=== PATIENT | male | born 1980 | race Caucasian/White ===

== ENCOUNTER → 2019-11-07 07:46 | Outpatient (CLI) | payer OTHER, SELFPAY ==
--- NOTE | 2019-11-07 07:51 | CT_ITS ---
STUDY: CT MAXILLOFACIAL SINUSES REASON FOR EXAM: Male, 39 years old. Sinusitis RADIATION DOSAGE (If Supplied By Facility): CTDIvol = ( 33.05 ) mGy, DLP = ( 833.85 ) mGycm TECHNIQUE: The patient was scanned in a multi detector CT scanner. High resolution axial imaging was performed without the administration of intravenous contrast material. Sagittal and coronal images were reconstructed. Individualized dose optimization techniques were used for this CT. COMPARISON: None. FINDINGS: FRONTAL SINUSES: Moderate mucosal thickening of the right frontal sinus ETHMOIDAL SINUSES: Mild mucosal thickening within the bilateral ethmoid sinuses slightly more pronounced on the right MAXILLARY SINUSES: There is large mucous retention cyst in left maxillary sinus without air-fluid level. There is severe diffuse opacification of the right maxillary sinus with a polypoid lesion extending into the nasal cavity which may represent an antrochoanal polyp or papilloma. Clinical correlation recommended SPHENOIDAL SINUSES: Mild mucosal thickening in the right sphenoid sinus There is obstruction of the bilateral maxillary infundibuli due to mucosal thickening. Normal uncinate processes, ethmoid bullae, and hiatus semilunaris. Normal bilateral middle turbinates. Normal bilateral inferior turbinates. There is minimal septal deviation towards the left. There is patency of the bilateral nasal airways. The visualized osseous structures are normal. The visualized bilateral orbital contents are normal. CT/Sinus/Facial Bone IMPRESSION: Diffuse pansinusitis greater on the right with most severe involvement of the maxillary sinuses. Cannot exclude right antrochoanal polyp or papilloma. Clinical correlation recommended. Electronically Signed: Esteban Abdi MD at 17:30 EST , Service support ,
== END ==
PROVIDERS: Family Provider Family Medicine; PCP Family Medicine; Referring Provider Otolaryngology Otolaryngology/Facial Plastic Surgery; Visit Provider Otolaryngology Otolaryngology/Facial Plastic Surgery
DX: J32.9 Chronic sinusitis, unspecified (principal)
CPT/HCPCS: 70486

== ENCOUNTER 2019-12-23 07:50 | Day surgery (SDC) | payer OTHER, SELFPAY ==
--- NOTE | 2019-12-17 17:02 | EKG12_ITS ---
Test Reason : PREOP Blood Pressure : / mmHG Vent. Rate : 077 BPM Atrial Rate : 077 BPM P-R Int : 164 ms QRS Dur : 110 ms QT Int : 376 ms P-R-T Axes : 041 -09 041 degrees QTc Int : 425 ms Normal sinus rhythm Normal ECG Confirmed by TREVOR ROSENBERG, BLACK ([id number]), features editor LUIZA HINDS ([id number]) on 12/18/2019 1:49:27 PM Referred By: Lizandro Sanchez Confirmed By:BLACK MURRAY MD
[2019-12-17 17:36] LABS: Hematocrit 45.2 % (40-54); Mean Corp Hgb Conc 33.2 g/dL (32-36); Mean Corpuscular Hgb 29.2 pg (27.0-32.0); Mean Corpuscular Volume 88.1 fL (80-94); Mean Platelet Vol. 9.1 fl (6.2-12.0); Platelet Count 290 K/mm3 (150-450); RBC Distribution Width CV 12.1 % (11.6-14.6); RBC Distribution Width SD 39.3 fl (35.1-43.9); Red Blood Count 5.13 M/mm3 (4.6-6.2); White Blood Count 6.2 K/mm3 (4.4-11.0)
[2019-12-17 18:17] LABS: Anion Gap 4 (5-15); BUN 17 mg/dL (7-18); BUN/Creat Ratio 17.8 RATIO (10-20); Calcium,Total 8.8 mg/dL (8.5-10.1); Chloride 104 mmol/L (98-107); Creatinine, Serum 0.95 mg/dL (0.70-1.30); EST Glomerular Filtration Rate 94 mL/min (>60); Est Glom Filt Rate - Afr Amer 114 mL/min (>60); Glucose 85 mg/dL (74-106); Potassium 3.6 mmol/L (3.5-5.1); Sodium Level 137 mmol/L (136-145)
[2019-12-23] VITALS (7 sets, daily range): BP systolic 136–160; BP diastolic 84–94; PULSE 67–80; RESP 16; TEMP 35.9–36.6; O2SAT 93–97; BMI 37.3
[2019-12-23] MEDS: Lactated Ringers 1,000 ML 100 ML IV (08:37)
--- NOTE | 2019-12-23 09:35 | ETH_PTH ---
PATIENT: SUDHIR CHAVEZ LOC: [facility] [place] U#:[id number] AGE/SX: 39/M ROOM: RE12/23/[address]: Dr. Lizandro Sanchez MD : [id number] BED: DIS: 12/23/2019 SPEC #: [id number] RECD: 12/23/19 13:21 STATUS: MICHAEL GIO #: [id number] ARMANDO: 12/23/19 09:[address]: Lizandro Sanchez DEPT: SURGICAL PATHOLOGY RECD BY: Akshat He ENTERED: 12/23/19 13:38 SP TYPE: ETH TISS OTHR DR: Dr. Gricelda Prasad DO Tissues: Ethmoid sinus, NOS Procedures: Surgery Specimen Level III HEADER OPERATION: Maxillary antrostomy, ethmoidectomy anterior PRE-OP DIAGNOSIS: Choanal polyp and chronic sinusitis TISSUE SUBMITTED: Right sinus contents, right maxillary polyp MICROSCOPIC DIAGNOSIS Right maxillary sinus polyp and contents, ethmoidectomy: Fragments of benign sinonasal polyp, inflamed. Consistent with chronic sinusitis. Minute fragments of unremarkable bone. AM:[facility] 12/24/19 MICROSCOPIC DESCRIPTION Slides are reviewed. GROSS DESCRIPTION Received in fixative is one container labeled with the patient's name and designated right sinus and right maxillary contents. The specimen consists of reddish-garcia mucoid material aggregating to 3 x 2 x 0.1 cm. The specimen is totally submitted in two cassettes. / AM:[facility] 12/23/19 TC:3 CPT: 78354
--- NOTE | 2019-12-23 09:46 | DCINST_ITS ---
You will use the following diet at home:: No restrictions Your food should be the consistency of: Regular Discharge Activity: - - No nose blowing Additional Activity Instructions:: Start saline irrigation tomorrow. Irrigate 4x/day Allergies/Adverse Reactions: Allergies No Known Allergies Allergy (Verified 12/23/19 08:18) Medications to take at Discharge NK 12/16/19 Primary Care Physician: Gricelda Prasad [Primary Care Provider] - Test Results: Test results from this visit will be discussed in further detail at your follow- up appointment, if applicable.
[2019-12-23] MEDS: Oxymetazoline 0.05% 1 SPRAY SPRAY.BTL 15 SPRAY (10:25)
--- NOTE | 2019-12-23 11:04 | OP.PCM_ITS ---
Report of Operation Date of Procedure: 12/23/19 Pre-Operative Diagnosis: chronic sinusitis. right maxillary polyp Post-Operative Diagnosis: same Surgery/Procedure Performed:: Right anterior ethmoidectomy. right maxillary antrostomy with tissue removal Type of Anesthesia:: General Anesthesiologist: [place] Specimen's removed: right maxillary polyp/sinus contents Estimated Blood Loss (mL): minimal Description of Procedure: The patient was taken to the operating room on 12/23/19. He was placed in the supine position on the operating table. He was given sufficient general endotracheal anesthesia. The head of bed was elevated 30 degrees. The navigation system was placed and verified per protocol and found to be accurate. 0,30 and 70 degrees rigid nasal endoscopes were used throughout the entire case. The middle turbinate uncinate process and polyps were injected with 1% lidocaine with epinephrine bilaterally. The right middle turbinate was medialized with a [place] elevator. Polyp was removed from the middle meatus using a sinus shaver. Polyp was also seen dumbelling out of an accessory os in the inferior meatus. A ball-tipped sinus seeker was placed into the patient's maxillary sinus. The uncinate process was taken down using a microdebrider. Tissue was removed from the maxillary sinus using a microdebrider with a 30 and 70 degree rigid nasal endoscope for visualization. Small 90 degree currettes were also used to remove all polypoid tissue. Next, the ethmoid bulla was opened with a small curette. Anterior ethmoidectomy were then carried out using curette, sinus shaver and 45 degree [place] Rickey forceps. Ethmoid cells were verified for relation to the skull base and orbit prior to being entered with t [employer] navigation system. Hemostasis was then achieved using Afrin pledgets. The pledgets were then removed bilaterally and Sandi powder was applied bilaterally for absolute hemostasis. The procedure was then terminated. The patient was then awoken and brought to the recovery room in stable condition. blood loss minimal, replacement none. Sponge, needle, instrument count were correct at the end of the procedure.
== END 2019-12-23 12:03 | disposition home or self-care (01) ==
LOC: SDC 07:53 → AC 07:55
PROVIDERS: Anesthesiology; Family Provider Family Medicine; PCP Family Medicine; Referring Provider Otolaryngology; Visit Provider Otolaryngology
PROC: (CPT 31032; principal; 2019-12-23 09:05)
DX: J33.0 Polyp of nasal cavity (principal); J32.8 Other chronic sinusitis; I10 Essential (primary) hypertension
CPT/HCPCS: 00160; 31032; 31254; 31267; 36415; 80048; 85027; 88304; 88305; 93005; J7120; J2405